=== PATIENT | female | born 1935 | race Caucasian/White ===

== ENCOUNTER 2024-04-01 11:00 | Emergency (ER) | payer MEDICARE, SELFPAY ==
[2024-04-01] VITALS (8 sets, daily range): BP systolic 143–182; BP diastolic 56–86; PULSE 53–81; RESP 16–18; TEMP 36.5; O2SAT 98–100; BMI 36.2
--- NOTE | 2024-04-01 11:05 | CT_ITS ---
WS: [id number] CT CERVICAL SPINE HISTORY: fall TECHNIQUE: Contiguous 2.0 mm axial imaging performed through the entire cervical spine. Sagittal and coronal reformats also performed. All CT scans at [facility] use at least one of these dose o ptimization techniques: automated exposure control; mA and/or kV adjustment per patient size (include s targeted exams where dose is matched to clinical indication); or iterative reconstruction. DLP: 2709.93 mGy.cm COMPARISON: None available. Normal cervical alignment. Craniocervical junction, atlantodental interval and C1-C2 alignment is nor mal. Mild degenerative disc space narrowing. Predental space is narrowed. Facet joints are normally aligne d with no subluxation or dislocation. C2-C3: Normal. C3-C4: Central disc osteophyte. Severe LEFT facet joint arthritis. Mild central and LEFT foraminal st enosis. C4-C5: Osteophytic ridging and bilateral facet arthritis. Severe LEFT foraminal stenosis with moderat e central and RIGHT foraminal stenosis. C5-C6: Osteophytic ridging with mild RIGHT foraminal stenosis. C6-C7: Facet joint arthropathy with bilateral foraminal stenosis. C7-T1: No stenosis. Soft tissues are normal. Lung apices are clear. CT/CT cervical spin wo con* [id number] IMPRESSION: 1. No acute cervical spine fracture. 2. Facet joints are normally aligned. Multilevel advanced facet joint arthropa thy. 3. 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
--- NOTE | 2024-04-01 11:05 | CT_ITS ---
WS: [id number] CT HEAD NONCONTRAST HISTORY: fall TECHNIQUE: Contiguous axial imaging performed through the brain. Bone and soft tissue windows. Sagitt al and coronal reformats reviewed. All CT scans at [facility] use at least one of these dose optimization techniques: automated exposure control; mA and/or kV adjustment per patient size (includ es targeted exams where dose is matched to clinical indication); or iterative reconstruction. DLP: 2709.93 mGy.cm COMPARISON: None available. Moderate bilateral symmetric cerebral atrophy and mild small vessel ischemic disease. Prior RIGHT bas al ganglia lacunar infarct. Moderate cerebellar atrophy. No inferior displacement of the cerebellar tonsils. Ventricles: Normal size with no hydrocephalus. Paranasal sinuses: As visualized are clear. Mastoid air cells: Well pneumatized. Calvarium and scalp: No skull fracture. Moderate sized acute soft tissue hematoma centered over the R IGHT frontal bone and orbit. CT/CT head wo con* [id number] IMPRESSION: 1. No acute intracranial hemorrhage or edema. 2. Moderate volume loss and mild small vessel ischemic disease. 3. Moderate-sized acute hematoma centered over the RIGHT frontal bone and orbi t. No fracture.
--- NOTE | 2024-04-01 11:05 | ED_ITS ---
HPI - Fall General: Chief Complaint: Fall Stated Complaint: fall, skin tears Time Seen by Provider: 04/01/24 11:01 Source: patient and EMS Mode of arrival: EMS Limitations: no limitations History of Present Illness: 88-year-old female states she was at [place] [employer] tripped over the curb and fell. She did hit her head does have a hematoma right side had a small laceration she hit her right eyebrow does have some anterior to her right hand complain of some mild right knee and hand pain she denies loss conscious does rate her headache a 4 out of 10. Denies any other injuries Associated symptoms-after fall: Reports headache(s); Denies abdominal pain, chest pain or neck pain Related Data Home Medications Medication Instructions Recorded Confirmed furosemide 40 mg tablet 80 mg PO DAILY 04/01/24 04/01/24 levothyroxine 50 mcg tablet 50 mcg PO DAILY 04/01/24 04/01/24 metoprolol succinate 50 mg 50 mg PO DAILY 04/01/24 04/01/24 tablet,extended release 24 hr omeprazole 20 mg capsule,delayed 20 mg PO DAILY PRN Stomach Upset 04/01/24 04/01/24 release pravastatin 80 mg tablet 80 mg PO DAILY 04/01/24 04/01/24 spironolactone 25 mg tablet 25 mg PO DAILY 04/01/24 04/01/24 Allergies Allergy/AdvReac Type Severity Reaction Status Date / Time Unable to Assess Allergy Unverified 04/01/24 11:06 Review of Systems Const: Denies: fever(s), chills, body aches or change in appetite ENMT: Denies: throat pain or dental pain Card: Denies: chest pain Resp: Denies: dyspnea GI: Denies: abdominal pain, nausea, vomiting or diarrhea Musc: Reports: extremity pain; Denies: neck pain or back pain Skin/Breast: Denies: rash Neuro: Reports: headache(s) Physical Exam Const: COMMON NORMALS: no acute distress, patient oriented x3 and healthy appearing HENMT: COMMON NORMALS: normocephalic HEAD & SCALP: normocephalic OTHER: Hematoma over right eyebrow with a 2 cm laceration Eye: COMMON NORMALS: Equal, round and reactive pupils present and EOMs intact bilaterally PUPIL: Yes Equal, round and reactive pupils present Neck/C-Spine: COMMON NORMALS: full ROM and supple Chest: COMMONS NORMALS: normal inspection of the chest and normal palpation of entire chest wall Resp: COMMON NORMALS: normal respiratory effort, No retractions, No use of accessory muscles and clear to auscultation bilaterally AUSCULTATION: clear to auscultation bilaterally Cardio: COMMON NORMALS: regular rate, regular rhythm and No murmurs present (Cardio) RATE: regular rate RHYTHM: regular rhythm GI: COMMON NORMALS: Normal to inspection, nondistended, normoactive bowel sounds present, Soft to palpation, non-tender and no masses PALPATION: Yes Soft to palpation Extremity: NARRATIVE EXTREMITY EXAM: Right knee tenderness with a contusion skin tears over right hand no obvious deformity Neuro: COMMON NORMALS: patient oriented x3, moves all extremities and no focal motor deficits Psych: COMMON NORMALS: mental status grossly normal, Normal thought process present and cooperative THOUGHT PROCESS: Normal thought process present Skin: COMMON NORMALS: no rashes or lesions noted and no wounds GENERAL SKIN EXAM: no rashes or lesions noted Procedures Laceration Laceration 1: Site: face Side (If applicable): right Size (cm): 2 Description: linear Depth: simple, single layer Pre-repair: wound explored and irrigated extensively Skin layer closed with: other (dermabond) Course Vital Signs: Vital signs: Vital Signs Temperature 97.7 F 04/01/24 11:02 Pulse Rate 53 L 04/01/24 11:36 Respiratory Rate 18 04/01/24 11:23 Blood Pressure 159/59 04/01/24 11:36 Pulse Oximetry 99 04/01/24 11:36 Oxygen Delivery Me thod Room Air 04/01/24 11:36 MDM - Fall Medical Decision Making Patient presents with facial contusion closed head injury along with a laceration over the right eyebrow laceration superficial was able to repair with Dermabond she does have abrasions to right hand no signs of any fractures imaging all was normal here she stable for discharge follow-up with PCP return if worsening. Lab Data Radiology Impressions Cervical Spine CT 04/01/24 11:05 IMPRESSION: 1. No acute cervical spine fracture. 2. Facet joints are normally aligned. Multilevel advanced facet joint arthropathy. 3. 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 Hand X-Ray 10/03/24 11:05 IMPRESSION: 1. No fracture or dislocation. Degenerative changes. Head CT 04/01/24 11:05 IMPRESSION: 1. No acute intracranial hemorrhage or edema. 2. Moderate volume loss and mild small vessel ischemic disease. 3. Moderate-sized acute hematoma centered over the RIGHT frontal bone and orbit. No fracture. Knee X-Ray 04/01/24 11:05 IMPRESSION: 1. Moderately advanced degenerative change and chondrocalcinosis. No acute fracture. Face CT 04/01/24 12:39 IMPRESSION: 1. No facial bone fracture. 2. Moderate size acute hematoma centered over the RIGHT frontal bone and orbit. 3. No paranasal sinus air-fluid level. All radiology interpretation(s) finalized by discharge Discharge Plan Discharge Patient Disposition: Home Clinical Impression: Fall, Head injury, Facial laceration Prescriptions: No Action furosemide 40 mg tablet 80 mg PO DAILY metoprolol succinate 50 mg tablet extended release 24 hr 50 mg PO DAILY spironolactone 25 mg tablet 25 mg PO DAILY pravastatin 80 mg tablet 80 mg PO DAILY levothyroxine 50 mcg tablet 50 mcg PO DAILY omeprazole 20 mg capsule,delayed release(DR/EC) 20 mg PO DAILY PRN (Reason: Stomach Upset) Discharge Orders: Discharge ED (Routine); Ordered 04/01/24 Ordered By: Joe Orozco Discharge Diet: Advance as tolerated Discharge Activity: Resume usual activity Patient Instructions: Laceration (ED), Head Injury (ED), Skin Adhesive Care (ED) Coding Level of Care Code ED Pharmacy Clinical Specialist for Jose Parker
--- NOTE | 2024-04-01 11:05 | XR_ITS ---
WS: [email or web address] Exam: XR knee RT 3V* [id number] Date/Time of Exam: 04/01/2024 11:39 AM Reason For Exam: fall No acute fracture or dislocation. Advanced degenerative narrowing of the medial joint compartment. Ch ondrocalcinosis of the medial and lateral menisci. No joint effusion. Spurring of the patella. Vascul ar calcifications posteriorly. XR/XR knee RT 3V* [id number] IMPRESSION: 1. Moderately advanced degenerative change and chondrocalcinosis. No acute frac ture.
--- NOTE | 2024-04-01 11:05 | XR_ITS ---
WS: [email or web address] Exam: XR hand RT min 3V* [id number] Date/Time of Exam: 04/01/2024 11:39 AM Reason For Exam: injury No acute fracture or dislocation. Moderate degenerative changes of the IP and MP joints. No soft tiss ue foreign bodies are seen. Moderate degenerative changes of the wrist noted. XR/XR hand RT min 3V* [id number] IMPRESSION: 1. No fracture or dislocation. Degenerative changes.
--- NOTE | 2024-04-01 12:39 | CT_ITS ---
WS: [id number] CT FACIAL BONES HISTORY: fall TECHNIQUE: Images obtained from the supraorbital location through the mandible. Soft tissue and bone windows are reviewed. Coronal and sagittal reformats have also been submitted. DLP: 2709.[address] scans at [facility] use at least one of these dose optimization techniques: automated e xposure control; mA and/or kV adjustment per patient size (includes targeted exams where dose is matc hed to clinical indication); or iterative reconstruction. COMPARISON: None available. No nasal bone or zygomatic arch fracture. No orbit fracture. Mandibular condyles are normally positio smiley with no fracture. No air-fluid levels or blood within the paranasal sinuses. Moderate size acute hematoma centered over the RIGHT forehead extending over the RIGHT orbit and globe. No postseptal extension of the hematoma . Degenerative changes in the upper cervical spine. Normal alignment with no fracture. Paravertebral so ft tissues as visualized are normal. CT/CT facial bones wo con* [id number] IMPRESSION: 1. No facial bone fracture. 2. Moderate size acute hematoma centered over the RIGHT frontal bone and orbit . 3. No paranasal sinus air-fluid level.
== END 2024-04-01 14:09 | disposition home or self-care (01) ==
PROVIDERS: Emergency Provider Emergency Medicine
DX: S01.111A Laceration without foreign body of right eyelid and periocular area, initial encounter (principal); S60.511A Abrasion of right hand, initial encounter; W01.0XXA Fall on same level from slipping, tripping and stumbling without subsequent striking against object, initial encounter; Y92.512 Supermarket, store or market as the place of occurrence of the external cause
CPT/HCPCS: 12011; 70450; 70486; 72125; 73130; 73562; 99284